=== PATIENT | female | born 1995 | race Caucasian/White ===

== ENCOUNTER 2018-06-10 22:05 | Emergency (ER) | payer OTHER ==
[~2018-06-10] VITALS: Ht 152.4 cm; Wt 57.0 kg
--- NOTE | 2018-06-10 22:38 | NUR ---
PT STATES RECENT TONSILECTOMY 06/04/18. STATES APPROXIMATELY AN HOUR AGO STARTED SPITTING UP A LOT OF BLOOD AND HAS A BUCKET W/ BRIGHT RED BLOOD NOTED. PT CONTINUES TO SPIT UP BLOOD INTO EMESIS BAGS, STATES THAT IT IS "LESS THAN 2O MINUTES AGO." PT MILDLY TACHYCARDIC. MD AWARE. ALL MONITORING APPLIED. CALL LIGHT WITHIN REACH. FRIEND AT BEDSIDE. IV INITIATED PER MD REQUEST.
--- NOTE | 2018-06-10 22:57 | NUR ---
THIS RN TO CHECK ON PT AND PT STARTED SPITTING UP MORE BLOOD AGAIN AND GIVEN MORE EMESIS BAGS. AWARE.
[2018-06-10] MEDS ORDERED: TRANEXAMIC ACID 100 MG/ML, 10ML ONE (23:18)
[2018-06-10] MEDS ORDERED: TRANEXAMIC ACID 100 MG/ML, 10ML IVPB STA (23:23)
[2018-06-10 23:40] LABS: BASOPHILS # (AUTO) 0.02 x10^3/uL (0-0.1); BASOPHILS % (AUTO) 0 % (0-1); EOSINOPHILS # (AUTO) 0.07 x10^3/uL (0-0.4); EOSINOPHILS % (AUTO) 1 % (1-7); LYMPHOCYTES # (AUTO) 2.55 x10^3/uL (1-3.4); LYMPHOCYTES % (AUTO) 23 % (22-44); MD NO; MEAN CORPUSCULAR HEMOGLOBIN 29.2 pg (27.0-34.8); MEAN CORPUSCULAR HGB CONC 33.7 g/dL (32.4-35.8); MEAN CORPUSCULAR VOLUME 86.7 fL (80-100); MEAN PLATELET VOLUME 9.3 fL (7.4-10.4); MONOCYTES # (AUTO) 0.92 x10^3/uL (0.2-0.8); MONOCYTES % (AUTO) 8 % (2-9); NEUTROPHILS % (AUTO) 68 % (42-75); PLATELET COUNT 289 x10^3/uL (130-400); RED BLOOD COUNT 5.17 x10^6/uL (3.82-5.3); RED CELL DISTRIBUTION WIDTH 12.3 % (9.6-15.2)
[2018-06-10 23:53] LABS: ALBUMIN 4.5 g/dL (3.4-5.0); ANION GAP 9 mmol/L (5-15); CALCIUM 9.4 mg/dL (8.5-10.1); CHLORIDE 108 mmol/L (98-107); CREATININE 0.71 mg/dL (0.55-1.02)
--- NOTE | 2018-06-11 00:05 | NUR ---
PT NO LONGER SPITTING UP CLOTS AT THIS TIME AND ABLE TO SWALLOW OWN SECRETIONS. STATES FEELING BETTER. VSS. MILDLY TACHYCARDIC AT 97.
--- NOTE | 2018-06-11 01:05 | NUR ---
PT CONTINUES TO CLEAR OWN SECRECTIONS AND NO MORE BLOOD SPIT UP. VSS. CALL LIGHT WITHIN REACH. PT TB OBSERVED PER MD ORDER.
[2018-06-11 01:06] VITALS: BP 126/77
[2018-06-11] MEDS ORDERED: ONDANSETRON 2MG/ML, 2ML ONE (01:25)
[2018-06-11] MEDS ORDERED: ONDANSETRON 2MG/ML, 2ML IVPush ONE (01:30)
[2018-06-11] MEDS ORDERED: HYDROCODONE (21:09)
== END 2018-06-11 02:42 | disposition home or self-care (01) ==
LOC: ED 23:59
DX: J95.830 Postprocedural hemorrhage of a respiratory system organ or structure following a respiratory system procedure (principal); L76.22 Postprocedural hemorrhage of skin and subcutaneous tissue following other procedure; Z90.89 Acquired absence of other organs
CPT/HCPCS: 36415; 80048; 82040; 85025; 86850; 86900; 96374; 96375; 99291; J2405

== ENCOUNTER 2018-06-11 20:37 | Emergency (ER) | payer OTHER ==
[~2018-06-11] VITALS: Ht 152.4 cm; Wt 56.1 kg
[2018-06-11] MEDS ORDERED: HYDROCODONE (21:09)
--- NOTE | 2018-06-11 21:13 | NUR ---
PT PRESENTS TO ED FOR BLEEDING S/P TONSILECTOMY ON 06/04/2018. PT WAS SEEN IN THIS ED YESTERDAY FOR SAME. PT STATES BLEEDING TODAY IS MUCH LESS, APPROX 100ML, WITH PAIN LOCALIZED TO THROAT. CONNECTED TO BP CUFF AND PULSE OX. VSS. PT RESTING IN ROOM WITH FRIEND AT BEDSIDE. MD TO BEDSIDE FOR ASSESSMENT. RT TREATMETN ORDERED. AWAITING RT NOW.
[2018-06-11] MEDS ORDERED: TRANEXAMIC ACID 100 MG/ML, 10ML NPPB STA (21:22)
[2018-06-11] MEDS ORDERED: TRANEXAMIC ACID 100 MG/ML, 10ML ONE (21:27)
[2018-06-11 21:33] LABS: BASOPHILS # (AUTO) 0.01 x10^3/uL (0-0.1); BASOPHILS % (AUTO) 0 % (0-1); EOSINOPHILS # (AUTO) 0.04 x10^3/uL (0-0.4); EOSINOPHILS % (AUTO) 1 % (1-7); LYMPHOCYTES # (AUTO) 1.84 x10^3/uL (1-3.4); LYMPHOCYTES % (AUTO) 22 % (22-44); MD NO; MEAN CORPUSCULAR HEMOGLOBIN 28.7 pg (27.0-34.8); MEAN CORPUSCULAR HGB CONC 33.5 g/dL (32.4-35.8); MEAN CORPUSCULAR VOLUME 85.6 fL (80-100); MEAN PLATELET VOLUME 8.6 fL (7.4-10.4); MONOCYTES # (AUTO) 0.59 x10^3/uL (0.2-0.8); MONOCYTES % (AUTO) 7 % (2-9); NEUTROPHILS # (AUTO) 5.81 x10^3/uL (1.8-6.8); NEUTROPHILS % (AUTO) 70 % (42-75); PLATELET COUNT 261 x10^3/uL (130-400); RED BLOOD COUNT 4.48 x10^6/uL (3.82-5.3); RED CELL DISTRIBUTION WIDTH 12.5 % (9.6-15.2)
--- NOTE | 2018-06-11 21:34 | NUR ---
RT PRESENT FOR TREATMENT. VSS.
[2018-06-11 21:38] LABS: ALANINE AMINOTRANSFERASE 17 U/L (12-78); ANION GAP 9 mmol/L (5-15); CALCIUM 9.1 mg/dL (8.5-10.1); CHLORIDE 108 mmol/L (98-107); CREATININE 0.64 mg/dL (0.55-1.02)
[2018-06-11 21:40] LABS: ALKALINE PHOSPHATASE 75 U/L (45-117); BILIRUBIN,TOTAL 0.7 mg/dL (0.2-1.0); TOTAL PROTEIN 7.7 g/dL (6.4-8.2)
--- NOTE | 2018-06-11 22:05 | NUR ---
REPORT TO RAFAELA NUNEZ RN AT THIS TIME.
--- NOTE | 2018-06-11 22:07 | NUR ---
Bedside SBAR report received from RN, Kodi. Pt resting on gurfoley. RT called due to nebulizer not working anymore. RT at bedside to reset nebulizer.
--- NOTE | 2018-06-11 23:00 | NUR ---
Pt continues resting on gurney, suction at bedside for use with any bleeding. Pt remains on monitors, VSS. Dr. Shelley aware that neb treatment is finished.
[2018-06-11 23:09] VITALS: BP 107/64
--- NOTE | 2018-06-11 23:18 | NUR ---
Dr. Shelley at bedside to discuss ED findings and POC.
--- NOTE | 2018-06-11 23:49 | NUR ---
Patient/Caregiver given discharge instructions and they have confirmed that they understand the instructions. Patient ambulatory with steady gait.
== END 2018-06-11 23:51 | disposition home or self-care (01) ==
LOC: ED 21:37
DX: J95.830 Postprocedural hemorrhage of a respiratory system organ or structure following a respiratory system procedure (principal)
CPT/HCPCS: 36415; 80053; 85025; 94640; 99283